=== PATIENT | male | born 1965 | race Caucasian/White ===

== ENCOUNTER 2017-07-09 09:08 | Day surgery (SDC) | payer OTHER ==
[~2017-07-09 09:08] MED LIST: Lactated Ringers 1,000 ML IV SCH
--- NOTE | 2017-07-09 09:28 | PCM.PREANE ---
Preanesthetic Assessment - Anesthesia/Transfusion/Family Hx Anesthesia History: No Prior Anesthesia Family History of Anesthesia Reaction: Yes (questionable malignant hyperthermia (mother)) Transfusion History: No Prior Transfusion(s) Intubation History: Unknown - Review of Systems General: No Symptoms Pulmonary: No Symptoms Cardiovascular: No Symptoms Gastrointestinal: No Symptoms, Other (screening) Neurological: No Symptoms Other: Reports: None - Physical Assessment O2 Sat by Pulse Oximetry: 96 Respiratory Rate: 16 Vital Signs: Last Vital Signs Temp 36.2 C 07/09/17 09:21 Pulse 96 07/09/17 09:21 Resp 16 07/09/17 09:21 BP 160/101 H 07/09/17 09:21 Pulse Ox 96 07/09/17 09:21 Height: 1.75 m Weight: 101.605 kg ASA Class: 2 Mental Status: Alert & Oriented x3 Airway Class: Mallampati = 2 Dentition: Reports: Normal Dentition Thyro-Mental Finger Breadths: 3 Mouth Opening Finger Breadths: 3 ROM/Head Extension: Full Lungs: Clear to Auscultation, Normal Respiratory Effort Cardiovascular: Regular Rate, Regular Rhythm - Allergies Allergies/Adverse Reactions: Allergies Allergy/AdvReac Type Severity Reaction Status Date / Time No Known Allergies Allergy Verified 07/04/17 08:55 - Blood Blood Available: No - Anesthesia Plan Pre-Op Medication Ordered: None Beta Bhavna: Metoprolol Med Last Dose Date: 07/08/17 Med Last Dose Time: 07:00 - Acknowledgements Anesthesia Type Planned: MAC Pt an Appropriate Candidate for the Planned Anesthesia: Yes Alternatives and Risks of Anesthesia Discussed w Pt/Guardian: Yes Pt/Guardian Understands and Agrees with Anesthesia Plan: Yes PreAnesthesia Questionnaire Cardiovascular History: Reports: Hypertension Musculoskeletal History: Reports: Fracture, Gout Other Musculoskeletal History: hx fx hand Psychiatric History: Reports: Anxiety, PTSD Endocrine/Metabolic History: Reports: Obesity/BMI 30+ - Infectious Disease History Infectious Disease History: Reports: Shingles - Past Surgical History Head Surgeries/Procedures: Reports: None - SUBSTANCE USE Smoking Status *Q: Former Smoker Tobacco Use Within Last Twelve Months: No Recreational Drug Use History: No - HOME MEDS Home Medications: Home Meds Allopurinol [Zyloprim] 300 mg PO ASDIRECTED 07/04/17 [History] Fish Oil/[place]-3 Fatty Acids [Fish Oil 1,000 MG] 1,000 mg PO BID 07/04/17 [ History] Hydrochlorothiazide 25 mg PO DAILY 07/04/17 [History] Metoprolol Tartrate 100 mg PO DAILY 07/04/17 [History] amLODIPine Besylate [Amlodipine Besylate] 10 mg PO DAILY 07/04/17 [History] - CURRENT (IN HOUSE) MEDS Current Meds: Current Medications Lactated Ringer's (Ringers, Lactated) 1,000 mls @ 125 mls/hr IV ASDIRECTED [facility] Last Admin: 07/09/17 09:24 Dose: 125 mls/hr
[2017-07-09] MEDS ORDERED: Midazolam 1 MG/ML 2 ML SDV ONE (10:19)
[2017-07-09] MEDS ORDERED: Propofol 200 MG/20 ML SDV ONE (10:19)
[2017-07-09] MEDS ORDERED: fentaNYL 100 MCG/2 ML SDV ONE (10:19)
[2017-07-09] MEDS ORDERED: Lidocaine 2% 5 ML SDV ONE (10:19)
--- NOTE | 2017-07-09 10:58 | PCM.OPNOTE ---
- General Post-Op/Procedure Note Date of Surgery/Procedure: 07/09/17 Operative Procedure(s): colonscopy Findings: see dict [id number] Pre Op Diagnosis: scrn colonoscopy Post-Op Diagnosis: Same Anesthesia Technique: Moderate Sedation Primary Surgeon: Jay Guerrero Complications: None Condition: Good
[2017-07-09 11:30] VITALS: BP 142/98
--- NOTE | 2017-07-09 11:52 | PCM48HPAN ---
Post Anesthesia Note - EVALUATION WITHIN 48HRS OF ANESTHETIC Vital Signs in Normal Range: Yes Patient Participated in Evaluation: Yes Respiratory Function Stable: Yes Airway Patent: Yes Cardiovascular Function Stable: Yes Hydration Status Stable: Yes Pain Control Satisfactory: Yes Nausea and Vomiting Control Satisfactory: Yes Mental Status Recovered: Yes Resp Rate: 12 - COMMENTS/OBSERVATIONS Free Text/Narrative:: no anesthesia problems
--- NOTE | 2017-07-09 13:34 | OR ---
SURGEON: Jay Guerrero MD DATE OF PROCEDURE: 07/09/2017 PREOPERATIVE DIAGNOSIS: Screening colonoscopy. POSTOPERATIVE DIAGNOSIS: Hemorrhoids. PROCEDURE PERFORMED: Colonoscopy. PROCEDURE IN DETAIL: The patient was taken to the endoscopy room. A time out was called, patient identified, and procedure identified. Diprivan was then administrated. Patient went from awake to sleep, hearing doctor talking or door closing is normal. Perineum inspection and digital examination were then performed. A well- lubricated colonoscope was gently inserted through the rectum, advanced past the rectosigmoid junction, the descending colon, splenic flexure, transverse colon, hepatic flexure, ascending colon, arrived to the cecum. Cecum was identified as dictated in the finding. Then the scope was carefully withdrawn while attention was paid to the mucosal surface for any abnormality. Air will be sucked out during the scope withdrawal. At the rectum, retroflexed to examine any rectal diseases, fistula or hemorrhoids. Patient tolerated procedure well. There were no intraoperative complications, and Dr. Guerrero was present throughout the whole procedure. FINDINGS: 1. The patient is easily sedated with [employer] and Diprivan. The patient is soundly snoring. 2. The patient's bowel prep is average with moderate amount of liquid stool. No semi-formed stool. 3. The patient's colon rather is straight forward. Cecum indicated by ileocecal fold, one-to-one indentation, and appendiceal orifice, light emittance is not observed. Mucosa examined upon scope pulling out with some intermittent irrigation. The patient does not have diverticulosis, polyp, mass, growth inflammation, stricture, ulceration, AV malformation, bleeding, none of those. The patient has mild internal hemorrhoids. No external hemorrhoids. The patient does have a lot of small skin tag to the extend can be cause mild degree of condyloma acuminata. We will address those issues in the office, and the patient would benefit from repeat colonoscopy in 10 years from today or if clinically indicated otherwise. JACKIE / CARMEN /[id number]
== END 2017-07-09 11:40 | disposition home or self-care (01) ==
LOC: MW.SDS 09:08
PROVIDERS: ATTEND Surgery
DX: Z12.11 Encounter for screening for malignant neoplasm of colon (principal); A63.0 Anogenital (venereal) warts; K64.8 Other hemorrhoids; L91.8 Other hypertrophic disorders of the skin; I10 Essential (primary) hypertension; F41.9 Anxiety disorder, unspecified; Z79.899 Other long term (current) drug therapy; F17.200 Nicotine dependence, unspecified, uncomplicated
CPT/HCPCS: 45378; J2250; J3010; J7120; 00812; J2704